=== PATIENT | male | born 1980 | race Hispanic/Latino ===

== ENCOUNTER 2023-12-25 14:05 | Emergency (ER) | payer MEDICAID, SELFPAY | END 2023-12-25 15:00 | disposition home or self-care (01) | LOC: NAV ERS 14:05 | DX: S61.452A Open bite of left hand, initial encounter (principal); F17.210 Nicotine dependence, cigarettes, uncomplicated; Z55.6 Problems related to health literacy; Z23 Encounter for immunization; W50.3XXA Accidental bite by another person, initial encounter ==

== ENCOUNTER 2024-02-05 13:29 | Emergency (ER) | payer SELFPAY | END 2024-02-05 14:02 | disposition home or self-care (01) | LOC: NAV ERS 13:29 | DX: M79.642 Pain in left hand (principal); F17.210 Nicotine dependence, cigarettes, uncomplicated | CPT/HCPCS: 99283 ==